=== PATIENT | male | born 1985 | race Caucasian/White ===

== ENCOUNTER 2017-10-20 10:15 | Emergency (ER) | payer OTHER ==
[~2017-10-20] VITALS: Ht 175.3 cm; Wt 65.8 kg
--- NOTE | 2017-10-20 10:25 | NUR ---
BIB RA909 post ground level trip and fall. Patient states that he tripped on a wire he did not see it while holding a drink on his hand at the time. Noted he felt pain in his chin right after the fall.
--- NOTE | 2017-10-20 10:40 | NUR ---
PATIENT WAS MSE BY DR VELIZ ROOM [id number].
[2017-10-20] MEDS ORDERED: ACETAMINOPHEN 325 MG TABLET PO ONE (10:45)
[2017-10-20] MEDS ORDERED: ACETAMINOPHEN ES 500 MG TABLET ONE (10:47)
--- NOTE | 2017-10-20 11:04 | NUR ---
PATIENT BACK FROM CT NOTED NO S/S DISTRESS
--- NOTE | 2017-10-20 11:20 | NUR ---
Patient discharged to home in stable conditon. Written and verbal after care instructions given. Patient verbalizes understanding of instructions. Refused to sign DC paper work. Dr Denson made aware.
== END 2017-10-20 11:25 | disposition home or self-care (01) ==
LOC: ER 10:15
DX: S06.0X0A Concussion without loss of consciousness, initial encounter (principal); W01.0XXA Fall on same level from slipping, tripping and stumbling without subsequent striking against object, initial encounter; Y92.89 Other specified places as the place of occurrence of the external cause; Y93.89 Activity, other specified; Y99.8 Other external cause status
CPT/HCPCS: A4663; A9150